=== PATIENT | female | born 1950 | race Caucasian/White ===

== ENCOUNTER → 2017-07-21 | Outpatient (CLI) | payer MEDICARE, SELFPAY | PROVIDERS: Visit Provider Internal Medicine | DX: R53.82 Chronic fatigue, unspecified (principal); R04.0 Epistaxis | CPT/HCPCS: 36415; 80069; 80076; 85025; 87275; 87276 ==

== ENCOUNTER → 2018-07-19 10:48 | Outpatient (CLI) | payer MEDICARE, SELFPAY ==
[2018-07-19 11:49] LABS: Hemoglobin A1C 6.5 % (0.0-7.0)
[2018-07-19 13:39] LABS: Alanine Aminotransferase 33 U/L (12-78); Albumin Level 3.8 gm/dL (3.4-5.0); Alkaline Phosphatase 94 U/L (46-116); Anion Gap 15.4 mEq/L (5-15); Aspartate Amino Transferase 21 U/L (15-37); Bilirubin,Direct 0.1 mg/dL (0.0-0.2); Bilirubin,Indirect 0.2 mg/dL (0.0-0.9); Bilirubin,Total 0.3 mg/dL (0.2-1.0); Blood Urea Nitrogen 26 mg/dL (7-18); Calcium 9.2 mg/dL (8.5-10.1); Carbon Dioxide 25 mmol/L (21.0-32.0); Chloride 102 mmol/L (98-107); Creatinine,Serum 1.22 mg/dL (0.55-1.02); Estimated Glomerular Filt Rate 44 ml/min (>60); Free T4 (Free Thyroxine) 1.26 ng/dl (0.76-1.46); GFR (African American) 53 ML/MIN (>60); Glucose 107 mg/dL (74-106); Phosphorous 4.2 mg/dL (2.4-4.9); Potassium 4.4 mmoL/L (3.5-5.1); Sodium 138 mmol/L (136-145); Thyroid Stimulating Hormone 1.23 uIU/ml (0.358-3.740); Total Protein,Serum 7.4 gm/dL (6.4-8.2)
[2018-07-20 11:15] LABS: Triiodothyronine (T3) Free 2.5 pg/mL (2.0-4.4)
[2018-07-21 06:18] LABS: Thyroid Stimulating Immunoglob <0.10 IU/L (0.00-0.55)
== END ==
PROVIDERS: Visit Provider Internal Medicine
DX: E11.9 Type 2 diabetes mellitus without complications (principal); I10 Essential (primary) hypertension; E03.9 Hypothyroidism, unspecified; R53.82 Chronic fatigue, unspecified; Z79.899 Other long term (current) drug therapy
CPT/HCPCS: 36415; 80069; 80076; 83036; 84439; 84443; 84445; 84481

== ENCOUNTER → 2019-05-10 10:29 | Outpatient (CLI) | payer MEDICARE, SELFPAY ==
[2019-05-10 10:58] LABS: Basophils # 0.1 K/mm3 (0-0.2); Basophils % 1.3 % (0.1-2.0); Eosinophils # 0.8 K/mm3 (0.0-0.4); Eosinophils % 10.2 % (0.1-12.0); Hematocrit 30.7 % (37.0-47.0); Hemoglobin 8.6 g/dL (12.2-16.2); Lymphocytes # 3.9 K/mm3 (0.7-4.5); Lymphocytes % 48.5 % (10-50); Mean Corpuscular HGB Conc 28.1 g/dL (31.8-35.4); Mean Corpuscular Hemoglobin 21.1 pg (27.0-31.2); Mean Corpuscular Volume 75.1 fl (81-99); Mean Platelet Volume 6.8 fl (7.4-10.4); Monocytes # 0.7 K/mm3 (0.1-1.0); Neutrophils # 2.6 K/mm3 (1.8-7.8); Neutrophils % 31.8 % (37.0-80.0); Red Blood Count 4.08 M/mm3 (4.20-5.40); White Blood Count 8.1 K/mm3 (4.8-10.8)
[2019-05-10 11:46] LABS: Alanine Aminotransferase 19 U/L (12-78); Albumin Level 3.9 gm/dL (3.4-5.0); Alkaline Phosphatase 93 U/L (46-116); Anion Gap 13.8 mEq/L (5-15); Aspartate Amino Transferase 15 U/L (15-37); Bilirubin,Direct 0.1 mg/dL (0.0-0.2); Bilirubin,Indirect 0.2 mg/dL (0.0-0.9); Bilirubin,Total 0.3 mg/dL (0.2-1.0); Blood Urea Nitrogen 26 mg/dL (7-18); Calcium 9.6 mg/dL (8.5-10.1); Carbon Dioxide 28 mmol/L (21.0-32.0); Chloride 100 mmol/L (98-107); Chol/HDL Ratio 2.7 (1-3.5); Cholesterol 228 mg/dL (140-200); Creatinine,Serum 1.12 mg/dL (0.55-1.02); Estimated Glomerular Filt Rate 48 ml/min (>60); Free T4 (Free Thyroxine) 1.18 ng/dl (0.76-1.46); GFR (African American) 58 ML/MIN (>60); Glucose 100 mg/dL (74-106); HDL Cholesterol 84 mg/dL (29-89); LDL Cholesterol 120 mg/dL (0-130); Magnesium 1.8 mg/dL (1.4-2.2); Phosphorous 4.6 mg/dL (2.4-4.9); Potassium 3.8 mmoL/L (3.5-5.1); Sodium 138 mmol/L (136-145); Thyroid Stimulating Hormone 2.42 uIU/ml (0.358-3.740); Total Protein,Serum 7.6 gm/dL (6.4-8.2); Triglycerides 120 mg/dL (30-200); VLDL Cholesterol 24 mg/dL (0-40)
[2019-05-10 11:51] LABS: Platelet Count 666 K/mm3 (142-424)
[2019-05-10 12:33] LABS: Hemoglobin A1C 6.6 % (0.0-7.0)
[2019-05-10 14:14] LABS: Erythrocyte Sedimentation Rate 33 mm/hr (0-30)
[2019-05-11 11:44] LABS: Triiodothyronine (T3) Free 2.4 pg/mL (2.0-4.4); Vitamin B12 523 pg/mL (232-1245); Vitamin D 25 Hydroxy 33.5 ng/mL (30.0-100.0)
[2019-05-13 17:04] LABS: Thyroid Stimulating Immunoglob <0.10 IU/L (0.00-0.55)
== END ==
PROVIDERS: Visit Provider Internal Medicine
DX: E11.9 Type 2 diabetes mellitus without complications (principal); I10 Essential (primary) hypertension; E03.9 Hypothyroidism, unspecified; R53.82 Chronic fatigue, unspecified; Z79.899 Other long term (current) drug therapy
CPT/HCPCS: 36415; 80061; 80069; 80076; 82607; 82652; 83036; 83735; 84439; 84443; 84445; 84481; 85025; 85651